=== PATIENT | male | born 2000 | race Two or more races ===

== ENCOUNTER 2024-10-10 13:39 | Emergency (ER) | payer SELFPAY ==
[2024-10-10 13:57] VITALS: BP 124/75; PULSE 75; RESP 18; TEMP 36.8; O2SAT 95
--- NOTE | 2024-10-10 14:03 | XR_ITS ---
Examination: CT abdomen and pelvis without contrast. Coronal 3-D reconstructions. Sagittal 2-D reconstructions. Date and time of exam:October 10, 2024 1433 hours Comparison 01/02/2012 INDICATIONS: Onset left-sided flank pain radiating to the back today CTDI: vol (mGy): 8.21 DLP: (mGycm): 521 Technique: Axial images of the abdomen have been obtained, 3 mm slice thickness Intravenous contrast material has not been administered. Low dose protocols were performed. One or more of the following dose reduction techniques were used; automated exposure control, adjustment of the mA and/or KV according to patient size, use of iterative reconstruction technique. Findings: Diffuse fatty infiltration throughout the liver No gallstones Spleen not enlarged No pancreatic or adrenal mass No renal or ureteral calculi, no hydronephrosis Aorta normal size Normal appendix No pericecal inflammatory change Scattered colonic diverticulosis No bladder mass or bladder calculi Normal size prostate Intact osseous structures IMPRESSION: No renal or ureteral calculi, no hydronephrosis No bladder mass or bladder calculi
--- NOTE | 2024-10-10 14:03 | PD.EDRME ---
Rapid Medical Screening Exam RME Arrival date/time: 10/10/24 13:39 This is a case of 34-year-old male who came in in the emergency room with multiple symptoms patient states that he has pain in the left side of the abdomen radiating to both lower flank patient also having shortness of breath and numbness of both arms patient is also complaining of both leg pain Chief Complaint: Abdominal Pain Time Seen by Provider: 10/10/24 13:56 Vital signs: Vital Signs Temperature 98.2 F 10/10/24 13:57 Pulse Rate 75 10/10/24 13:57 Respiratory Rate 18 10/10/24 13:57 Blood Pressure 124/75 10/10/24 13:57 Pulse Oximetry (%) 95 10/10/24 13:57 Oxygen Delivery Method Room Air 10/10/24 13:57
[2024-10-10 15:04] LABS: Collection Type, Urine Clean Catch; Squamous Epithelial Cell,Urine 0 /hpf (0-5)
[2024-10-10 15:22] LABS: Basophils % (Auto) 0 % (0-2.5); Eosinophils # (Auto) 0.1 Thou/mm3 (0.0-0.5); Eosinophils % (Auto) 1 % (0-10); Hemoglobin 14.5 g/dL (13.5-16.0); Immature Granulocytes % (Auto) 0 % (0-0); Immature Granulocytes Auto 0.02 Thou/mm3 (0.00-0.00); Lymphocytes % (Auto) 30 % (10-50); Mean Corpuscular HGB Conc 35.4 g/dl (31.0-37.0); Mean Corpuscular Hemoglobin 29.2 pg (25.0-35.0); Mean Corpuscular Volume 83 fL (80-100); Monocytes # (Auto) 0.3 Thou/mm3 (0.0-0.8); Monocytes % (Auto) 5 % (0-12); Neutrophils # (Auto) 4.4 Thou/mm3 (1.8-7.7); Neutrophils % (Auto) 64 % (37-80); Nucleated Red Blood Cell % 0 /100 WBC (0); Platelet Count 252 Thou/mm3 (140-440); RDW Standard Deviation 38.6 fL (35.1-43.9); Red Blood Count 4.97 Miln/mm3 (4.50-5.90); White Blood Count 6.8 Thou/mm3 (3.8-10.6)
[2024-10-10 15:26] LABS: Bilirubin,Urine Negative (Negative); Blood,Urine Negative (Negative); Clarity,Urine Clear (Clear/Hazy); Color,Urine Lt-Yellow (Lt Yel-Yel); Glucose, Urine Negative (Negative); Ketones,Urine Negative (Negative); Leukocyte Esterase,Urine Negative (Negative); Nitrite,Urine Negative (Negative); Protein,Urine Negative (Neg - Trace); RBC,Urine 3 /hpf (0-3); Specific Gravity,Urine 1.016 (1.001-1.035); Urobilinogen,Urine Negative mg/dL (0.0-1.0); WBC,Urine < 1 /hpf (0-5)
[2024-10-10 15:33] LABS: Alanine Aminotransferase 73 U/L (10-49); Albumin, Serum 4.8 gm/dL (3.5-5.0); Albumin/Globulin Ratio 1.9 (1.2-2.2); Alkaline Phosphatase 91 U/L (46-116); Anion Gap 11 (7-16); Aspartate Amino Transferase 39 U/L (0-34); BUN/Creatinine Ratio 9 Ratio (12-20); Bilirubin,Total 0.5 mg/dL (0.3-1.2); Blood Urea Nitrogen 9 mg/dL (9-23); Calcium 9.2 mg/dL (8.3-10.6); Calcium (Corrected) 9.2 mg/dL (8.5-10.1); Carbon Dioxide 24.5 mMol/L (20.0-31.0); Chloride 106 mMol/L (98-107); Globulin 2.5 gm/dL (2.3-3.5); Glucose 103 mg/dL (74-106); Lipase 25 U/L (12-53); Osmolality,Calculated 279 (275-295); Potassium 3.6 mMol/L (3.4-5.1); Sodium 141 mMol/L (136-145); Total Protein 7.3 gm/dL (5.7-8.2); eGFR > 60 See Note
--- NOTE | 2024-10-10 16:35 | EDNOTE_ITS ---
ED Abdominal Pain RME/HPI General Chief Complaint: Abdominal Pain Stated complaint: Abdominal pain, SOB, left arm numbness Time seen by provider: 10/10/24 13:56 Arrival date/time: 10/10/24 13:39 RME / HPI RME / HPI narrative: 34-year-old male who came in in the emergency room with multiple symptoms patient states that he has pain in the left side of the abdomen radiating to both lower flank patient also having shortness of breath and numbness of both arms patient is also complaining of both leg pain. Lasting for several minutes. No vomiting no diarrhea no constipation no fever. Related Data Previous Rx's ?Medication ?Instructions ?Recorded ibuprofen 800 mg tablet 800 mg PO TID PRN pain #30 t abs 11/28/22 acetaminophen 500 mg tablet 1,000 mg (2 x 500 mg) PO Q 6H PRN 02/16/24 (Tylenol Extra Strength) pain #30 tabs ibuprofen 600 mg tablet 600 mg PO Q6H PRN pain #30 t abs 02/16/24 lidocaine 5 % topical patch 1 patch topical QDAY PRN p ain #15 02/16/24 ea methocarbamol 500 mg tablet 1,000 mg (2 x 500 mg) PO Q 8H PRN 02/16/24 pain #30 tabs dicyclomine 20 mg tablet 20 mg PO TID PRN abdominal p ain 10/10/24 #30 tabs polyethylene glycol 3350 17 4 g PO QDAY #238 grams gram/dose oral powder (Miralax) Allergies Allergy/AdvReac Type Severity Reaction Status Date / Time No Known Allergies Allergy Verified 10/10/24 13:45 Review of Systems Review of Systems Narrative Review of Systems: Review of system reviewed and within normal limits except mentioned in HPI ED Exam Narrative Physical exam: VITAL SIGNS: Reviewed. GENERAL APPEARANCE: Alert and interactive, follows commands, no acute distress, HEAD AND FACE: Non-traumatic. ENT: PERRL, pink conjunctivitis, eyelid no trauma, Mucous membrane moist. NECK: Supple, nontender, no nuchal rigidity. CHEST: No tenderness, no crepitus, no paradoxical movement, no retractions. LUNGS: Clear, well ventilated, symmetric, no rales, no wheezing, no ronchi, no stridor, good breath sounds bilaterally. HEART: Regular rate, regular rhythm, no murmur, no gallops. ABDOMEN: Soft, positive bowel sounds, nondistended, no guarding, nontender, no r ebound, no masses, RECTAL: Deferred. GENITAL: Deferred. NEUROLOGICAL: Gross motor function intact sensory function intact, Appropriate for age. MUSCULOSKELETAL: low back nontender, full range of motion. EXTREMITIES: Nontender, full range of motion. SKIN: Color pink, dry, no rash, no lacerations, no abrasions, no contusions. LYMPHATICS: Deferred. Course Quality Measures none Orders Category Date Time Status CT abdomen pelvis wo con Stat Exams 10/10/24 14:03 Completed CBC Stat Lab 10/10/24 14:28 Completed Comprehensive Metabolic Panel Stat Lab 10/10/24 14:28 Completed Lipase Stat Lab 10/10/24 14:28 Completed Urinalysis Stat Lab 10/10/24 14:57 Completed Vital Signs Vital signs: Vital Signs Temperature 98.2 F 10/10/24 13:57 Pulse Rate 75 10/10/24 13:57 Respiratory Rate 18 10/10/24 13:57 Blood Pressure 124/75 10/10/24 13:57 Pulse Oximetry (%) 95 10/10/24 13:57 Oxygen Delivery Method Room Air 10/10/24 13:57 Abdominal Pain MDM MDM Narrative MDM Narrative:: 34-year-old male who came in in the emergency room with multiple symptoms patient states that he has pain in the left side of the abdomen radiating to both lower flank patient also having shortness of breath and numbness of both arms patient is also complaining of both leg pain. Lasting for several minutes. No vomiting no diarrhea no constipation no fever. Patient's workup today UNREMARKABLE INCLUDING NORMAL LABORATORY WORKUP AND CT SCAN OF THE ABDOMEN PELVIS. No recurrence of abdominal pain noted in the ED. Patient data External records reviewed:: None Clinical information provided by:: patient and family Social determinants that could affect healthcare access:: none Patient has the following chronic illnesses:: None How is presenting disease/condition affected by chronic disease/condition?: no chronic disease Evaluation data The following diagnostics were reviewed and interpreted by me:: lab results and radiology exam(s) Lab and/or radiology exams considered but not ordered:: None Interpretation Summary: See results MDM Medications / Prescriptions Medications or Prescriptions considered but not ordered:: None Medication administrations:: None Consultations Consultation(s) initiated? (list below): No Diagnosis Differential diagnosis abdominal pain: abdominal pain, constipation and small bowel obstruction Most likely diagnosis given after review of the tests above:: Abdominal pain Admission Indicated Admission indicated?: not indicated Admission Request Was there a request for admission?: No Disposition Plan Disposition Plan: Discharge Discharge Attestation Discharge Attestation: The patient and all family members were given an opportunity to ask questions and understood the discharge instructions. Discharge instructions specifically effects, indications for sooner follow up or return to the emergency department, and the expected course of current diagnosis. Patient condition: Stable Discharge Plan Plan Patient Disposition: HOME (Self Care) Discharge Disposition comment: stable Prescriptions/Referrals Prescriptions/Med Rec: New dicyclomine 20 mg tablet 20 mg PO TID PRN (Reason: abdominal pain) Qty: 30 0RF polyethylene glycol 3350 [Miralax] 17 gram/dose powder 4 g PO QDAY Qty: 238 0RF No Action ibuprofen 800 mg tablet 800 mg PO TID PRN (Reason: pain) Qty: 30 0RF ibuprofen 600 mg tablet 600 mg PO Q6H PRN (Reason: pain) Qty: 30 0RF methocarbamol 500 mg tablet 1,000 mg PO Q8H PRN (Reason: pain) Qty: 30 0RF lidocaine 5 % adhesive patch,medicated 1 patch topical QDAY PRN (Reason: pain) Qty: 15 0RF Rx Instructions: leave on most painful area for up to 12 hrs acetaminophen [Tylenol Extra Strength] 500 mg tablet 1,000 mg PO Q6H PRN (Reason: pain) Qty: 30 0RF Referrals: No Primary/Family,Physician [Primary Care Provider] - In 1 week Problem List Clinical Impression: Abdominal pain Patient/Caregiver Discharge Instructions Discharge Activity: activity as tolerated Education Materials: Abdominal Pain Additional Instructions: Thank you for the opportunity for serving you today. You are stable for discharged . You are advised to: Follow-up with your PCP in 1 to 2 days Return to ED for worsening of symptoms Increase oral fluids Take medication as prescribed Print Language: Jamaican Stand Alone Forms: [facility] Award Info., Patient Portal Info Letter
[2024-10-10 16:50] VITALS: BP 133/79; PULSE 63; RESP 18; TEMP 36.9; O2SAT 97
== END 2024-10-10 16:50 | disposition home or self-care (01) ==
PROVIDERS: Nurse Practitioner Family; Emergency Provider Emergency Medicine
DX: R10.32 Left lower quadrant pain (principal)
CPT/HCPCS: 36415; 74176; 80053; 81001; 83690; 85025; 99284